=== PATIENT | female | born 2000 | race Caucasian/White ===

== ENCOUNTER → 2021-04-04 16:01 | Outpatient (CLI) | payer BC, SELFPAY ==
[2021-04-04 16:44] LABS: COVID19 -Nasal RAPID Negative (Negative)
== END ==
PROVIDERS: Visit Provider Student in an Organized Health Care Education/Training Program
DX: R05 Cough (principal); R09.81 Nasal congestion; R51.9 Headache, unspecified; Z20.822 Contact with and (suspected) exposure to COVID-19
CPT/HCPCS: 87635

== ENCOUNTER → 2021-05-01 18:44 | Outpatient (CLI) | payer OTHER, SELFPAY ==
[2021-05-01 20:41] LABS: Urine N gonorrhoeae NOT DETECTED
[2021-05-01 20:45] LABS: Urine Chlamydia NOT DETECTED
== END ==
PROVIDERS: Visit Provider Physician Assistant
DX: Z11.3 Encounter for screening for infections with a predominantly sexual mode of transmission (principal)
CPT/HCPCS: 87210; 87491; 87591

== ENCOUNTER → 2021-05-02 17:09 | Outpatient (CLI) | payer OTHER, SELFPAY ==
[2021-05-02 20:04] LABS: HIV 1 & 2 Ab/Ag 4th Gen Combo NEGATIVE (NEGATIVE)
[2021-05-03 06:17] LABS: HSV 2 IGG AB < 0.91 index (0.00-0.90); HSV1IGG < 0.91 index (0.00-0.90)
[2021-05-03 22:36] LABS: Treponema pallidum Antibodies Non Reactive (Non Reactive)
== END ==
PROVIDERS: Referring Provider Physician Assistant; Visit Provider Physician Assistant
DX: Z11.3 Encounter for screening for infections with a predominantly sexual mode of transmission (principal)
CPT/HCPCS: 36415; 86695; 86696; 86780; 87389

== ENCOUNTER → 2021-05-27 14:47 | Outpatient (CLI) | payer OTHER, SELFPAY ==
--- NOTE | 2021-05-27 14:50 | DI.RAD.S_ITS ---
PROCEDURE: XR HAND RT MIN 3V INDICATIONS: hand pain/injury TECHNIQUE: 3 views of the hand(s) acquired. COMPARISON: None. FINDINGS: Bones: No fractures or dislocations. Carpal bones are normally aligned. No suspicious bony lesions. Soft tissues: No suspicious soft tissue calcifications. IMPRESSION: No acute fracture. No osseous lesion. If symptoms and/or clinical suspicion for pathology persist, further assessment with repeat, or advanced imaging (e.g., CT, MRI, or bone scan) may be helpful for further assessment. Dictated by: Faviola Garcia M.D. on 05/27/2021 at 14:59 Approved by: Faviola Garcia M.D. on 05/27/2021 at 14:59
== END ==
PROVIDERS: Referring Provider Physician Assistant; Visit Provider Physician Assistant
DX: M79.641 Pain in right hand (principal)
CPT/HCPCS: 73130